=== PATIENT | female | born 1980 | race Caucasian/White ===

== ENCOUNTER 2020-03-03 11:29 | Outpatient (REF) | payer OTHER, SELFPAY | END 2020-03-03 11:30 | disposition home or self-care (01) | LOC: HO.LAB 11:29 | PROVIDERS: Visit Provider Internal Medicine | DX: Z20.828 Contact with and (suspected) exposure to other viral communicable diseases (principal) | CPT/HCPCS: U0003 ==

== ENCOUNTER 2020-11-14 08:35 | Emergency (ER) | payer OTHER, SELFPAY ==
--- NOTE | ~2020-11-14 | CT_ITS ---
EXAMINATION: CT HEAD WITHOUT CONTRAST CLINICAL INFORMATION: Shocking sensation left parietal region COMPARISON: None TECHNIQUE: Contiguous axial imaging was performed from the skull base to vertex without intravenous administration of contrast. This CT examination was performed using dose optimization techniques as appropriate, variously including the following: *Automated exposure control *Adjustment of mA and/or kV according to patient size (this includes techniques or standardized protocols for targeted exams where dose is matched to indication/reason for exam; i.e. extremities or head) *Use of iterative reconstruction technique DLP: 764 mGy-cm FINDINGS: There is no evidence of acute intracranial hemorrhage or territorial infarction. No abnormal mass effect or midline shift is seen. Quiles to white matter differentiation is well preserved. No extra-axial fluid collections are identified. The ventricles are normal in size. There is no abnormal attenuation within the brain parenchyma. The osseous structures and soft tissues are normal. The mastoid air cells and visualized portions of the paranasal sinuses are well aerated. CT/CT head/brain wo con IMPRESSION: No acute intracranial pathology.
[2020-11-14 09:02] VITALS: BP 160/72; PULSE 72; RESP 16; TEMP 36.4; O2SAT 98; BMI 38.7
--- NOTE | 2020-11-14 09:31 | PC.NURSE ---
pT REPORTS A SHOCK SENSATION TO LEFT OCCIPUT, REPOTRS IT BEGAN LAST NIGHT AND IS INTERMITTENT IN NATURE, HX OF MIGRAINES BUT NEVER EXPERIENCED SX LIKE THIS BEFORE. DENIES ASSOCIATED SX, NEUROS INTACT, DENIES MED CHANGES, TOOK 2 ALEVE AT 2330. PT AOX3, SKIN WD, RESP REG AND EVEN, ANSWERING QUESTIONS APPROPRIATELY. CARSON SHELTON IN TO BEDSIDE FOR EVAL
[2020-11-14 09:33] VITALS: BP 149/73; PULSE 72; RESP 16
[2020-11-14] MEDS: 0.9 % Sodium Chloride 1,000 ML 999 ML IVCONT (09:48)
[2020-11-14 09:52] LABS: MANUAL DIFF FLAG NO
[2020-11-14 09:55] LABS: Basophils Percent Auto 0.4 % (0-2); Eosinophils Absolute Auto 0.1 X10*3/uL (0.0-0.4); Eosinophils Percent Auto 1.4 % (0-4); Hematocrit 37.1 % (37-47); Hemoglobin 11.6 g/dl (12.0-16.0); Imm Gran Abs Auto 0.02 X10*3/uL (0.00-0.03); Imm Gran Pct Auto 0.3 % (0.0-0.4); Lymphocytes Absolute Auto 2.1 X10*3/uL (1.2-4.9); Lymphocytes Percent Auto 28.8 % (20-40); Mean Corpuscular HGB Conc 31.3 g/dl (31.0-35.0); Mean Corpuscular Hemoglobin 25.9 pg (27.0-33.0); Mean Corpuscular Volume 82.8 fL (80-98); Mean Platelet Volume 10.1 fL (9.4-12.3); Monocytes Absolute Auto 0.6 X10*3/uL (0.1-1.2); Monocytes Percent Auto 7.7 % (2-11); Neutrophils Absolute Auto 4.4 X10*3/uL (2.0-8.3); Neutrophils Percent Auto 61.4 % (45-73); Platelet Count 376 X10*3/uL (160-400); Red Blood Count 4.48 X10*6/uL (4.20-5.50); Red Cell Distribution Width 13.2 % (11.0-16.0); White Blood Count 7.1 X10*3/uL (4.8-10.8)
--- NOTE | 2020-11-14 10:10 | ED_ITS ---
HPI - Headache General Chief Complaint: Headache Stated Complaint: Headache Time Seen by Provider: 11/14/20 08:36 Source: patient Mode of arrival: ambulatory Limitations: no limitations History of Present Illness HPI Narrative: 40-year-old female with a past medical history of a spontaneous pneumothorax in her 20s and numbness to right side of her face years ago seen by Neurology although cleared after multiple MRI's per patient and no significant other medical history presenting to the ED with complaints of shocking sensation like an electric shock pain to the left lateral posterior aspect of her head that started since 11:00 yesterday. She reports she does not feel like this is a headache. She reports she that is constant although intermittently she has the sharp shocking sensation and when this happened she is unable to concentrate. Reports she usually does not get headaches. She denies any fevers, chills, dizziness, recent head trauma, tick bites or possible CO2 toxicity, changes in vision, photophobia, ear pain, ear ringing, neck pain/stiffness, chest pain, shortness of breath, abdominal pain, nausea/vomiting, diarrhea, constipation, dysuria, hematuria, rashes or any other symptoms complaints or concerns at this time. MD elicited complaint: other (Sharp Head Pain ) Onset (ago): day(s) (Since yesterday 11:00) Onset description: gradually Location: left and parietal Severity: moderate Quality & Timing: sharp and intermittent Exacerbating factors: none Relieving factors: nothing Associated symptoms: none Treatments prior to arrival: other (Aleve with no symptomatic relief) Related Data Previous Rx's Medication Instructions Recorded [id number]-[id number]-[id number] 1 cap PO Q8H PRN #10 cap 11/14/20 [Fioricet] cyclobenzaprine 10 mg PO Q8H #10 tab 11/14/20 gabapentin 100 mg PO BID 7 Days #14 cap 11/14/20 ibuprofen 800 mg PO Q8H PRN #14 tab 11/14/20 prednisone 40 mg PO DAILY 5 Days #10 tab 11/14/20 Allergies Allergy/AdvReac Type Severity Reaction Status Date / Time No Known Allergies Allergy Verified 11/14/20 09:02 Review of Systems Review of Systems: Constitutional : No changes in activity, No lethargy, No recent prior head injury, No agitation, No increased fussiness ENT/Mouth : No Ear Pain, No Nasal discharge/drainage Eyes: No Eye Pain, No Swelling, No Redness, No Foreign Body, No Vision Changes Cardiovascular : No Chest Pain, No SOB Respiratory : No Cough Gastrointestinal : No Nausea, No Vomiting, No abdominal Pain Genitourinary : No Dysuria, No Urinary Frequency, No Urinary Incontinence, No Urgency, No Flank Pain Musculoskeletal : No joint pain, No neck stiffness, No back pain/injury Skin : No lacerations Neuro : No unsteady gait, No Paresthesias, No Loss of Consciousness, No altered mental status, No dizziness, + Head pain Denies past medical history of HIV, recent trauma, coagulopathy, recent spinal/ epidural procedure, new medication, URI symptoms, close contacts with similar symptoms, tick bite, or known CO2 exposure. Yes all other systems are reviewed and are negative [facility] Past Medical History Attestation statement: The following information was validated with the patient. Medical History No known health problems Social History Social History Alcohol intake: never Patient Tobacco Use Status: Never used Tobacco Use of substances other than those prescribed or required for medical reasons: No Advance Directives: Yes Advance Directives Information Provided: Yes Advance Directives on File: No Patient : No Physical Exam Vital Signs: Vital Signs: Last Vital Signs Temp 98.1 F 11/14/20 11:54 Pulse 63 11/14/20 11:54 Resp 18 11/14/20 11:54 BP 136/65 11/14/20 11:54 Pulse Ox 97 11/14/20 11:54 Body Mass Index 38.7 Vital signs have been reviewed as normal and appeared to be correct. Blood pressure normal. Heart rate normal. Respiration rate normal. Temperature normal. Oxygen saturation normal. Appearance: Alert. Oriented X3. No acute distress. Head: Normal external exam. Normocephalic. Atraumatic. Able to rotate head bilaterally. No temporal artery tenderness noted. Eyes: PERRLA. EOMI. No nystagmus noted. Conjunctiva and sclera normal. Eyelids normal. Corneal reflex normal. ENT: EAC normal. TM's Normal. Hearing normal. Pharynx normal. Uvula midline. tongue midline. Moist mucous membranes. No trismus noted. No drooling noted. No muffled voice noted. Neck: Normal inspection. Neck supple. FROM. No adenopathy. Thyroid Normal. No meningeal signs. No neck mass noted. CVS: Normal heart rate and rhythm. Heart sound normal. No murmurs noted. Pulses normal throughout. Respiratory: No respiratory distress. Painless inspiration. Breath sounds normal. No wheezes/rales/rhonchi noted. Chest nontender. No accessory muscle usage noted or decreased air movement noted. Back: Full range of motion noted. Skin: Skin warm and dry. Normal skin color. Normal skin turgor. No rashes/lesions/lacerations noted. Extremities: Extremities exhibit normal range of motion. Extremities nontender. Able to shrug shoulders bilaterally and keep up against resistance. Neuro: Oriented X 3. No motor deficit. No sensory deficit. Reflexes normal. Moving all extremities. No focal motor deficits. Cranial nerves II-XI intact bilaterally. Facial strength normal. Normal cognition. Speech normal. Gait normal. Strength 5/5 throughout. No pronator drift. No tremor noted. No fasciculations noted. Muscle tone normal throughout. No asterixis noted. Qxbgel-gb-dofw test normal. Heel to beltran test normal. Tandem gait normal. Does not sway with eyes open. Romberg test negative. Rapid alternating movement upper extremity normal. Rapid alternating movement lower extremity normal. Hand drop from overhead-Mrs. face. No rigidity noted. NIHSS score 0. Course Course Course Narrative: - Patient afebrile, resting comfortably in no distress. Non- toxic appearing. Patient denies any recent trauma/injury to head. Neurological exam shows no deficits. BP WNL. Denies any changes in vision. Patient ambulates without difficulty. Given the history, and physical - most likely diagnosis: Migraine LUCIO vs trigeminal neuralgia. Although patient reports she usually does not get headaches therefore will obtain a CT scan of brain to evaluate for any acute processes. Otherwise will treat pain with 100 mg of gabapentin for possible trigeminal neuralgia. Then re-evaluate. SAH: unlikely given gradual onset. Intracranial bleed: unlikely given neg trauma, neg anticoagulation Meningitis: unlikely given pt afebrile, neg stiff neck, no immune compromise. Exam without signs of meningismus Temporal arteritis: Unlikely given Neg jaw claudication, no temporal tenderness or nodularity on exam. Cerebral venous thrombosis: unlikely given no h/o hypercoaguable state, no chronic head/neck infection. Reevaluation(s) Reevaluation #1: - labs obtained ESR 49. Mild elevation in AST/ALT/alkaline p hosphate at 40/52/176. CRP 2.50. Otherwise all other labs are within normal limits. CT scan of brain within normal limits no acute processes are noted. Will DC home with steroids and symptomatic treatment along with gabapentin for 7 days and instructions to follow-up with neurology. Also explained to the patient that her LFTs were mildly elevated although she does not have any abdominal pain her abdomen is soft and nontender she reports she is hungry but no abdominal pain there for explained to her that she should follow-up with her PCP for repeat LFT. Patient and at bedside understand and agree with this plan. Time: 12:[address] [facility] - Headache Medical Records Attestation: I reviewed the patient's medical records. Lab Data Attestation: I reviewed the patient's lab results. Result diagrams: 11/14/20 09:45 11/14/20 09:45 Labs: Lab Results 11/14/20 11/14/20 11/14/20 Range/Units 09:45 09:45 09:45 WBC 7.1 (4.8-10.8) X10*3/uL RBC 4.48 (4.20-5.50) X10*6/uL Hgb 11.6 L (12.0-16.0) g/dl Hct 37.1 (37-47) % MCV 82.8 (80-98) fL MCH 25.9 L (27.0-33.0) pg MCHC 31.3 (31.0-35.0) g/dl RDW 13.2 (11.0-16.0) % Plt Count 376 (160-400) X10*3/uL MPV 10.1 (9.4-12.3) fL Immature Gran % (Auto) 0.3 (0.0-0.4) % Neut % (Auto) 61.4 (45-73) % Lymph % (Auto) 28.8 (20-40) % Louisa % (Auto) 7.7 (2-11) % Eos % (Auto) 1.4 (0-4) % Baso % (Auto) 0.4 (0-2) % Lymph # (Auto) 2.1 (1.2-4.9) X10*3/uL Louisa # (Auto) 0.6 (0.1-1.2) X10*3/uL Eos # (Auto) 0.1 (0.0-0.4) X10*3/uL Baso # (Auto) 0.0 (0.0-0.2) X10*3/uL Abs Immat Gran (auto) 0.02 (0.00-0.03) X10*3/uL Absolute Neuts (auto) 4.4 (2.0-8.3) X10*3/uL Absolute Nucleated RBC 0.000 (0.0-0.012) X10*3/uL Nucleated RBC % (auto) 0.0 (0.0-0.2) /100WBC ESR 49 H (0-20) MM/HR Sodium 138 (135-145) mmol/L Potassium 3.6 (3.3-5.1) mmol/L Chloride 101 (96-108) mmol/L Carbon Dioxide 27 (22-29) mmol/L Anion Gap 14 (12-20) BUN 13 (9-16) mg/dL Creatinine 0.76 (0.5-1.4) mg/dL Estim Creat Clear Calc 104.3 Estimated GFR > 60 Random Glucose 110 (60-115) mg/dL Calcium 9.2 (8.4-10.2) mg/dL Magnesium 2.0 (1.6-2.6) mg/dL Total Bilirubin 0.5 (0.0-1.0) mg/dL AST 40 H (5-31) U/L ALT 52 H (0-31) U/L Alkaline Phosphatase 176 H (39-117) U/L C-Reactive Protein (< or = 0.50) mg/dL Total Protein 8.2 H (6.5-8.0) g/dL Albumin 4.2 (3.5-5.0) g/dL 11/14/20 Range/Units 09:45 WBC (4.8-10.8) X10*3/uL RBC (4.20-5.50) X10*6/uL Hgb (12.0-16.0) g/dl Hct (37-47) % MCV (80-98) fL MCH (27.0-33.0) pg MCHC (31.0-35.0) g/dl RDW (11.0-16.0) % Plt Count (160-400) X10*3/uL MPV (9.4-12.3) fL Immature Gran % (Auto) (0.0-0.4) % Neut % (Auto) (45-73) % Lymph % (Auto) (20-40) % Louisa % (Auto) (2-11) % Eos % (Auto) (0-4) % Baso % (Auto) (0-2) % Lymph # (Auto) (1.2-4.9) X10*3/uL Louisa # (Auto) (0.1-1.2) X10*3/uL Eos # (Auto) (0.0-0.4) X10*3/uL Baso # (Auto) (0.0-0.2) X10*3/uL Abs Immat Gran (auto) (0.00-0.03) X10*3/uL Absolute Neuts (auto) (2.0-8.3) X10*3/uL Absolute Nucleated RBC (0.0-0.012) X10*3/uL Nucleated RBC % (auto) (0.0-0.2) /100WBC ESR (0-20) MM/HR Sodium (135-145) mmol/L Potassium (3.3-5.1) mmol/L Chloride (96-108) mmol/L Carbon Dioxide (22-29) mmol/L Anion Gap (12-20) BUN (9-16) mg/dL Creatinine (0.5-1.4) mg/dL Estim Creat Clear Calc Estimated GFR Random Glucose (60-115) mg/dL Calcium (8.4-10.2) mg/dL Magnesium (1.6-2.6) mg/dL Total Bilirubin (0.0-1.0) mg/dL AST (5-31) U/L ALT (0-31) U/L Alkaline Phosphatase (39-117) U/L C-Reactive Protein 2.50 H (< or = 0.50) mg/dL Total Protein (6.5-8.0) g/dL Albumin (3.5-5.0) g/dL Discharge Plan Discharge Clinical Impression: Left-sided trigeminal neuralgia, Elevated LFTs Patient Disposition: Home, Self-Care Instructions: Trigeminal Neuralgia (ED) Prescriptions: New gabapentin 100 mg capsule 100 mg PO BID 7 Days Qty: 14 RF: 0 ycqihusxcw-bnvysfmvtsigd-cyrd [Fioricet] 50-300-40 mg capsule 1 cap PO Q8H PRN (Reason: pain) Qty: 10 RF: 0 ibuprofen 800 mg tablet 800 mg PO Q8H PRN (Reason: pain) Qty: 14 RF: 0 cyclobenzaprine 10 mg tablet 10 mg PO Q8H Qty: 10 RF: 0 prednisone 20 mg tablet 40 mg PO DAILY 5 Days Qty: 10 RF: 0 Referrals: Víctor Young MD [Physician] - 2 days (Trigeminal neuralgia) Archie Cohen MD [Primary Care Provider] - 2 days Print Language: German
[2020-11-14] MEDS: Gabapentin 100 MG CAPSULE PO (10:18)
--- NOTE | 2020-11-14 10:19 | PC.NURSE ---
pt medicated with gabapentin as charted, offering no new sx at this time. resting quietly awaiting CT, NS running WO.
[2020-11-14 10:36] LABS: Alanine Aminotransferase 52 U/L (0-31); Albumin Level 4.2 g/dL (3.5-5.0); Alkaline Phosphatase 176 U/L (39-117); Anion Gap 14 (12-20); Aspartate Amino Transferase 40 U/L (5-31); Bilirubin Total 0.5 mg/dL (0.0-1.0); Blood Urea Nitrogen 13 mg/dL (9-16); Calcium 9.2 mg/dL (8.4-10.2); Carbon Dioxide 27 mmol/L (22-29); Chloride 101 mmol/L (96-108); Creatinine Clr Calc Pharmacy 104.3; Estimated Glomerular Filt Rate > 60; Glucose Random 110 mg/dL (60-115); Potassium 3.6 mmol/L (3.3-5.1); Sodium 138 mmol/L (135-145); Total Protein 8.2 g/dL (6.5-8.0)
[2020-11-14 10:37] LABS: Erythrocyte Sedimentation Rate 49 MM/HR (0-20)
[2020-11-14 11:54] VITALS: BP 136/65; PULSE 63; RESP 18; TEMP 36.7; O2SAT 97
[2020-11-14] MEDS: Butalb/Acetamin/Caff 50/325/40 TABLET 1 TAB PO (12:05)
[2020-11-14] MEDS: Cyclobenzaprine HCl 10 MG TABLET PO (12:05)
[2020-11-14 12:20] LABS: Glucose Urine UA NEG (NEG); Leukocyte Esterase Urine NEG (NEG); Nitrite Urine NEG (NEG); Specific Gravity - Urine <= 1.005 (1.005-1.025); Urine Blood TRACE (NEG); Urine Ketones NEG (NEG); Urine Protein NEG (NEG-TRACE)
[2020-11-14 12:34] LABS: Appearance Urine CLEAR; Color Urine YELLOW
[2020-11-14 12:45] LABS: Bacteria Urine TRACE /LPF; RBC Urine 0-2 /HPF (0); Squamous Epithelial Cell Urine 1+ /LPF
== END 2020-11-14 12:22 | disposition home or self-care (01) ==
PROVIDERS: Physician Assistant Medical; Emergency Provider Emergency Medicine; PCP Pediatrics
DX: G50.0 Trigeminal neuralgia (principal); R79.89 Other specified abnormal findings of blood chemistry
CPT/HCPCS: 36415; 70450; 80053; 81001; 83735; 85025; 85652; 86140; 96360; 99285

== ENCOUNTER 2022-05-10 16:29 | Emergency (ER) | payer BC, SELFPAY ==
--- NOTE | ~2022-05-10 | CT_ITS ---
STUDY PERFORMED: CTA OF THE CHEST WITH CONTRAST CLINICAL INFORMATION: Reason for Exam acute onset of l upper chest pain ?etiology DESCRIPTION: Initial noncontrast CT of the chest was performed. Contrast timing was performed at the level of the ascending thoracic aorta. Subsequently, arterial phase multidetector volumetric imaging was performed through the chest following the administration of 75 mL Omnipaque 350 intravenous contrast No contrast reaction reported Sagittal and coronal reformatted images were obtained on the technologist workstation. Three-dimensional MIP reformatted imaging was performed and reviewed. This CT examination was performed using dose optimization techniques as appropriate, variously including the following: *Automated exposure control *Adjustment of mA and/or kV according to patient size (this includes techniques or standardized protocols for targeted exams where dose is matched to indication/reason for exam; i.e. extremities or head) *Use of iterative reconstruction technique Total exam dose-length product 424 mGy-cm COMPARISON: Chest CT 05/07/2009 FINDINGS: VASCULAR FINDINGS: 1. Prominent pulsation artifact of the ascending aorta. Normal caliber. No dissection. 2. The aortic arch is normal in course and caliber without dissection. Normal 3 vessel branching configuration. 3. Descending and visualized upper abdominal aorta normal caliber. Celiac, SMA, and bilateral renal artery origins patent. 4. Although not tailored for evaluation of the pulmonary arteries, there is no central pulmonary embolism. NONVASCULAR FINDINGS: Lungs: No airspace consolidation. No suspicious appearing pulmonary nodules. Airways: Central through segmental airways are clear. Pleura and pericardium: No pleural or pericardial effusions. Heart: No cardiomegaly. No appreciable coronary artery vascular calcifications. Lymph nodes:No mediastinal, hilar, or axillary lymphadenopathy. Chest Wall: No chest wall mass. Upper abdomen: Status post cholecystectomy. No biliary ductal dilation. Diffuse hepatic hypoattenuation consistent with pronounced steatosis. Imaged upper abdominal viscera otherwise unremarkable. Bones: No acute fracture or suspicious osseous lesion. CT/CT angio chest aorta IMPRESSION: 1. No evidence of aortic dissection or other acute aortic syndrome. 2. No airspace consolidation or effusions. 3. Hepatic steatosis.
--- NOTE | ~2022-05-10 | XR_ITS ---
EXAMINATION: XR CHEST CLINICAL INFORMATION: Left upper chest pain COMPARISON: 05/15/2012 TECHNIQUE: Frontal view of the chest was obtained. FINDINGS: No significant abnormality is noted involving the heart, lungs, mediastinum, bony thorax or soft tissues. XR/XR chest 1V IMPRESSION: Unremarkable examination.
[2022-05-10 16:33] VITALS: BP 173/92; PULSE 95; RESP 18; TEMP 36.4; O2SAT 97; BMI 39.3
--- NOTE | 2022-05-10 16:34 | ED.CHESTPAIN ---
HPI - Chest Pain General Chief Complaint: Chest Pain <CARSON Maynard - Last Filed: 05/10/22 16:40> Stated Complaint: L arm numbness <CARSON Maynard - Last Filed: 05/10/22 16:40> Time Seen by Provider: 05/10/22 17:48 <CARSON Maynard - Last Filed: 05/10/22 16:40> Source: patient <Yao Vargas MD - Last Filed: 05/10/22 20:11> Mode of arrival: ambulatory <Yao Vargas MD - Last Filed: 05/10/22 20:11> Limitations: no limitations <Yao Vargas MD - Last Filed: 05/10/22 20:11> History of Present Illness HPI narrative: Patient is 42 years old with knows his significant past medical history was sitting at work all of sudden noticed left upper chest pain radiating to the left was very painful feel left arms folded on the right side no prior history of neck pain or shoulder problems pain increases on deep breaths movements and palpation patient is significant distress when she came to the ER no shortness of breath <Yao Vargas MD - Last Filed: 05/10/22 20:11> Related Data Home Medications: Previous Rx's Medication Instructions Recorded xazkpebgaz-ztbhlvqyyohyo-usjfmwed 1 cap PO Q8H PRN pain #10 caps 11/14/20 50 mg-300 mg-40 mg capsule (Fioricet) cyclobenzaprine 10 mg tablet 10 mg PO Q8H Muscle spasm #10 tabs 11/14/20 gabapentin 100 mg capsule 100 mg PO BID Trigeminal neuralgia 11/14/20 7 days #14 caps ibuprofen 800 mg tablet 800 mg PO Q8H PRN pain #14 tabs 11/14/20 prednisone 20 mg tablet 40 mg PO DAILY rash 5 days #10 tabs 11/14/20 cyclobenzaprine 10 mg tablet 10 mg PO Q8H #20 tabs 05/10/22 ibuprofen 600 mg tablet 600 mg PO Q6H PRN fever or pain 05/10/22 #30 tabs <CARSON Maynard - Last Filed: 05/10/22 16:40> Allergies/Adverse Reactions: Allergies Allergy/AdvReac Type Severity Reaction Status Date / Time No Known Allergies Allergy Verified 11/14/20 09:02 <CARSON Maynard - Last Filed: 05/10/22 16:40> Review of Systems Review of Systems: Yes all other systems are reviewed and are negative <Yao Vargas MD - Last Filed: 05/10/22 20:11> FOR[facility]LY [facility] Past Medical History Medical History: Medical History No known health problems <CARSON Maynard - Last Filed: 05/10/22 16:40> Social History Social History: Social History Alcohol intake: never Patient Tobacco Use Status: Never used Tobacco Smoked in Last 30 Days: No Advance Directives: No Advance Directives Information Provided: Yes <CARSON Maynard - Last Filed: 05/10/22 16:40> Physical Exam Vital Signs: Vital Signs: Last Vital Signs Temp 98.2 F 05/10/22 19:36 Pulse 81 05/10/22 19:36 Resp 16 05/10/22 19:36 BP 133/74 05/10/22 19:36 Pulse Ox 97 05/10/22 19:36 O2 Del Method 05/10/22 19:36 BMI result Body Mass Index 39.3 <CARSON Maynard - Last Filed: 05/10/22 16:40> Vital Signs: Last Vital Signs Temp 98.2 F 05/10/22 19:36 Pulse 81 05/10/22 19:36 Resp 16 05/10/22 19:36 BP 133/74 05/10/22 19:36 Pulse Ox 97 05/10/22 19:36 O2 Del Method 05/10/22 19:36 BMI result Body Mass Index 39.3 <Yao Vargas MD - Last Filed: 05/10/22 20:11> Appearance: Alert. Oriented X3. No acute distress. Eyes: PERRLA, No Nystagmus ENT: Pharynx normal. Oral Mucosa moist Neck: Normal inspection. Neck supple. No midline tenderness CVS: Normal heart rate and rhythm. Pulses normal. Respiratory: No respiratory distress. Equal air entry bilateral, no wheezing/rales/rhonchi Abdomen: Soft and nontender. Bowel sounds are present, no mass palpable, no CVA tenderness Skin: Skin warm and dry. Normal skin color. Normal skin turgor. Extremities: No lower extremity edema. No calf tenderness tenderness to touch left upper chest good pulses in the left arm but is slightly colder than the right side , pain increases on abduction of the left arm Neuro: Oriented X 3. No motor deficit. No sensory deficit.No cerebellar signs , cranial nerves II-XII intact <Yao Vargas MD - Last Filed: 05/10/22 20:11> Course Course Course Narrative: RME - 42 yo female with history of depression presents to the ER for evaluation of left upper chest pain that started at noon today after a coughing fit at work. Pain radiates into left neck, left shoulder and she states her left upper extremity feels numb and cold. She reports pain in the chest with movement of the lower LUE. Also reports new onset of right lower extremity numbness as well, history of the same in the past. Labs, EKG, CXR ordered. Doubt acute stroke, given contralateral LE symptoms. Strength is equal in bilateral UE but she has decreased sensation of the left lower arm. Will defer other imaging to provider in Main ER. <CARSON Maynard - Last Filed: 05/10/22 16:40> Medications Administered Discontinued Medications Generic Name Dose Route Start Last Admin Trade Name Freq PRN Reason Stop Dose Admin Iohexol 100 ml 05/10/22 19:11 05/10/22 19:11 Iohexol 350 Mg/Ml 100 Ml Infus..Btl IV 05/10/22 19:12 100 ml ONCE ONE Administration Morphine Sulfate 4 mg 05/10/22 18:01 05/10/22 18:46 Morphine Sulfate 4 Mg/Ml Cartridge IVPUSH 05/10/22 18:02 4 mg ONCE ONE Administration Protocol Ondansetron HCl 4 mg 05/10/22 18:05/10/22 18:46 Ondansetron Hcl 4 Mg/2 Ml Vial IVPUSH 05/10/22 18:02 4 mg ONCE ONE Administration <CARSON Maynard - Last Filed: 05/10/22 16:40> Medications Administered Discontinued Medications Generic Name Dose Route Start Last Admin Trade Name Freq PRN Reason Stop Dose Admin Iohexol 100 ml 05/10/22 19:11 05/10/22 19:11 Iohexol 350 Mg/Ml 100 Ml Infus..Btl IV 05/10/22 19:12 100 ml ONCE ONE Administration Morphine Sulfate 4 mg 05/10/22 18:01 05/10/22 18:46 Morphine Sulfate 4 Mg/Ml Cartridge IVPUSH 05/10/22 18:02 4 mg ONCE ONE Administration Protocol Ondansetron HCl 4 mg 05/10/22 18:01 05/10/22 18:46 Ondansetron Hcl 4 Mg/2 Ml Vial IVPUSH 05/10/22 18:02 4 mg ONCE ONE Administration <Yao Vargas MD - Last Filed: 05/10/22 20:11> Medical Decision Making Medical Decision Making [facility] Narrative: Etiology of left-sided pain is not very clear clinically musculoskeletal patient has similar pain less severe few days ago CT angio negative for any dissection or aneurysm or clot. The pain increases on left arm movements Patient has good circulation both arms neurovascular intact no midline spinal tenderness clinically patient has rotator cuff tendinitis with left chest wall pain <Yao Vargas MD - Last Filed: 05/10/22 20:11> Differential Diagnosis Aortic dissection/SCV with thrombosis/pneumothorax/muscular pain/ACS <Yao Vargas MD - Last Filed: 05/10/22 20:11> Lab Data [facility] Lab Attestation statement: I reviewed the patient's lab results. <Yao Vargas MD - Last Filed: 05/10/22 20:11> Result Diagrams: 05/10/22 16:49 05/10/22 16:49 <CARSON Maynard - Last Filed: 05/10/22 16:40> Labs: Lab Results 05/10/22 05/10/22 05/10/22 Range/Units 16:49 16:49 16:49 WBC 8.8 (4.8-10.8) X10*3/uL RBC 4.45 (4.20-5.50) X10*6/uL Hgb 11.5 L (12.0-16.0) g/dl Hct 36.5 L (37.0-47.0) % MCV 82.0 (80.0-98.0) fL MCH 25.8 L (27.0-33.0) pg MCHC 31.5 (31.0-35.0) g/dl RDW 13.2 (11.0-16.0) % Plt Count 340 (160-400) X10*3/uL MPV 10.3 (9.4-12.3) fL Immature Gran % (Auto) 0.2 (0.0-0.4) % Neut % (Auto) 62.2 (45-73) % Lymph % (Auto) 29.7 (20-40) % Coffee % (Auto) 6.3 (2-11) % Eos % (Auto) 1.1 (0-4) % Baso % (Auto) 0.5 (0-2) % Lymph # (Auto) 2.6 (1.2-4.9) X10*3/uL Coffee # (Auto) 0.6 (0.1-1.2) X10*3/uL Eos # (Auto) 0.1 (0.0-0.4) X10*3/uL Baso # (Auto) 0.0 (0.0-0.2) X10*3/uL Abs Immat Gran (auto) 0.02 (0.00-0.03) X10*3/uL Absolute Neuts (auto) 5.5 (2.0-8.3) x10*3/uL Absolute Nucleated RBC 0.000 (0.0-0.012) X10*3/uL Nucleated RBC % (auto) 0.0 (0.0-0.2) /100WBC PT (10.0-13.1) SEC INR (0.9-1.1) APTT (26.0-36.4) SEC D-Dimer High Sensitivty NG/ML Sodium 137 (135-145) mmol/L Potassium 3.7 (3.3-5.1) mmol/L Chloride 102 (96-108) mmol/L Carbon Dioxide 27 (22-29) mmol/L Anion Gap 12 (12-20) BUN 12 (9-16) mg/dL Creatinine 0.70 (0.5-1.4) mg/dL Estim Creat Clear Calc 111.8 Estimated GFR > 60 Random Glucose 94 (60-115) mg/dL Calcium 9.5 (8.4-10.2) mg/dL Magnesium 2.1 (1.6-2.6) mg/dL Total Bilirubin 0.5 (0.0-1.0) mg/dL Direct Bilirubin 0.2 (0.0-0.5) mg/dL AST 44 H (5-31) U/L ALT 49 H (0-31) U/L Alkaline Phosphatase 177 H (39-117) U/L Troponin I High Sens < 3.5 (<3.5-17.0) ng/L Total Protein 8.1 H (6.5-8.0) g/dL Albumin 4.3 (3.5-5.0) g/dL Urine Color Urine Appearance Urine pH (5.0-9.0) Ur Specific [place] (1.005-1.025) Urine Protein (Neg-Trace) mg/dL Urine Glucose (UA) (Negative) mg/dL Urine Ketones (Negative) mg/dL Urine Blood (Negative) Urine Nitrite (Negative) Ur Leukocyte Esterase (Negative) Urine RBC (0-2) /HPF Urine WBC (0-5) /HPF Ur Squamous Epith Cells (0-2) /HPF Urine Bacteria (None Seen) Hyaline Casts (0-2) /LPF COVID-19 ([place]) (Negative) COVID-19 Clin Com 05/10/22 05/10/22 05/10/22 Range/Units 16:49 16:49 18:18 WBC (4.8-10.8) X10*3/uL RBC (4.20-5.50) X10*6/uL Hgb (12.0-16.0) g/dl Hct (37.0-47.0) % MCV (80.0-98.0) fL MCH (27.0-33.0) pg MCHC (31.0-35.0) g/dl RDW (11.0-16.0) % Plt Count (160-400) X10*3/uL MPV (9.4-12.3) fL Immature Gran % (Auto) (0.0-0.4) % Neut % (Auto) (45-73) % Lymph % (Auto) (20-40) % Coffee % (Auto) (2-11) % Eos % (Auto) (0-4) % Baso % (Auto) (0-2) % Lymph # (Auto) (1.2-4.9) X10*3/uL Coffee # (Auto) (0.1-1.2) X10*3/uL Eos # (Auto) (0.0-0.4) X10*3/uL Baso # (Auto) (0.0-0.2) X10*3/uL Abs Immat Gran (auto) (0.00-0.03) X10*3/uL Absolute Neuts (auto) (2.0-8.3) x10*3/uL Absolute Nucleated RBC (0.0-0.012) X10*3/uL Nucleated RBC % (auto) (0.0-0.2) /100WBC PT 11.5 (10.0-13.1) SEC INR 1.0 (0.9-1.1) APTT 33.2 (26.0-36.4) SEC D-Dimer High Sensitivty 349 NG/ML Sodium (135-145) mmol/L Potassium (3.3-5.1) mmol/L Chloride (96-108) mmol/L Carbon Dioxide (22-29) mmol/L Anion Gap (12-20) BUN (9-16) mg/dL Creatinine (0.5-1.4) mg/dL Estim Creat Clear Calc Estimated GFR Random Glucose (60-115) mg/dL Calcium (8.4-10.2) mg/dL Magnesium (1.6-2.6) mg/dL Total Bilirubin (0.0-1.0) mg/dL Direct Bilirubin (0.0-0.5) mg/dL AST (5-31) U/L ALT (0-31) U/L Alkaline Phosphatase (39-117) U/L Troponin I High Sens (<3.5-17.0) ng/L Total Protein (6.5-8.0) g/dL Albumin (3.5-5.0) g/dL Urine Color Yellow Urine Appearance Clear Urine pH 6.5 (5.0-9.0) Ur Specific [place] 1.025 (1.005-1.025) Urine Protein Negative (Neg-Trace) mg/dL Urine Glucose (UA) Negative (Negative) mg/dL Urine Ketones Trace (Negative) mg/dL Urine Blood Small (1+) H (Negative) Urine Nitrite Negative (Negative) Ur Leukocyte Esterase Trace H (Negative) Urine RBC 6-10 H (0-2) /HPF Urine WBC 6-10 H (0-5) /HPF Ur Squamous Epith Cells 6-10 (0-2) /HPF Urine Bacteria None Seen (None Seen) Hyaline Casts 0-2 (0-2) /LPF COVID-19 ([place]) Negative (Negative) COVID-19 Clin Com See Note <CARSON Maynard - Last Filed: 05/10/22 16:40> Lab Results 05/10/22 05/10/22 05/10/22 Range/Units 16:49 16:49 16:49 WBC 8.8 (4.8-10.8) X10*3/uL RBC 4.45 (4.20-5.50) X10*6/uL Hgb 11.5 L (12.0-16.0) g/dl Hct 36.5 L (37.0-47.0) % MCV 82.0 (80.0-98.0) fL MCH 25.8 L (27.0-33.0) pg MCHC 31.5 (31.0-35.0) g/dl RDW 13.2 (11.0-16.0) % Plt Count 340 (160-400) X10*3/uL MPV 10.3 (9.4-12.3) fL Immature Gran % (Auto) 0.2 (0.0-0.4) % Neut % (Auto) 62.2 (45-73) % Lymph % (Auto) 29.7 (20-40) % Coffee % (Auto) 6.3 (2-11) % Eos % (Auto) 1.1 (0-4) % Baso % (Auto) 0.5 (0-2) % Lymph # (Auto) 2.6 (1.2-4.9) X10*3/uL Coffee # (Auto) 0.6 (0.1-1.2) X10*3/uL Eos # (Auto) 0.1 (0.0-0.4) X10*3/uL Baso # (Auto) 0.0 (0.0-0.2) X10*3/uL Abs Immat Gran (auto) 0.02 (0.00-0.03) X10*3/uL Absolute Neuts (auto) 5.5 (2.0-8.3) x10*3/uL Absolute Nucleated RBC 0.000 (0.0-0.012) X10*3/uL Nucleated RBC % (auto) 0.0 (0.0-0.2) /100WBC PT (10.0-13.1) SEC INR (0.9-1.1) APTT (26.0-36.4) SEC D-Dimer High Sensitivty NG/ML Sodium 137 (135-145) mmol/L Potassium 3.7 (3.3-5.1) mmol/L Chloride 102 (96-108) mmol/L Carbon Dioxide 27 (22-29) mmol/L Anion Gap 12 (12-20) BUN 12 (9-16) mg/dL Creatinine 0.70 (0.5-1.4) mg/dL Estim Creat Clear Calc 111.8 Estimated GFR > 60 Random Glucose 94 (60-115) mg/dL Calcium 9.5 (8.4-10.2) mg/dL Magnesium 2.1 (1.6-2.6) mg/dL Total Bilirubin 0.5 (0.0-1.0) mg/dL Direct Bilirubin 0.2 (0.0-0.5) mg/dL AST 44 H (5-31) U/L ALT 49 H (0-31) U/L Alkaline Phosphatase 177 H (39-117) U/L Troponin I High Sens < 3.5 (<3.5-17.0) ng/L Total Protein 8.1 H (6.5-8.0) g/dL Albumin 4.3 (3.5-5.0) g/dL Urine Color Urine Appearance Urine pH (5.0-9.0) Ur Specific [place] (1.005-1.025) Urine Protein (Neg-Trace) mg/dL Urine Glucose (UA) (Negative) mg/dL Urine Ketones (Negative) mg/dL Urine Blood (Negative) Urine Nitrite (Negative) Ur Leukocyte Esterase (Negative) Urine RBC (0-2) /HPF Urine WBC (0-5) /HPF Ur Squamous Epith Cells (0-2) /HPF Urine Bacteria (None Seen) Hyaline Casts (0-2) /LPF COVID-19 ([place]) (Negative) COVID-19 Clin Com 05/10/22 05/10/22 05/10/22 Range/Units 16:49 16:49 18:18 WBC (4.8-10.8) X10*3/uL RBC (4.20-5.50) X10*6/uL Hgb (12.0-16.0) g/dl Hct (37.0-47.0) % MCV (80.0-98.0) fL MCH (27.0-33.0) pg MCHC (31.0-35.0) g/dl RDW (11.0-16.0) % Plt Count (160-400) X10*3/uL MPV (9.4-12.3) fL Immature Gran % (Auto) (0.0-0.4) % Neut % (Auto) (45-73) % Lymph % (Auto) (20-40) % Coffee % (Auto) (2-11) % Eos % (Auto) (0-4) % Baso % (Auto) (0-2) % Lymph # (Auto) (1.2-4.9) X10*3/uL Coffee # (Auto) (0.1-1.2) X10*3/uL Eos # (Auto) (0.0-0.4) X10*3/uL Baso # (Auto) (0.0-0.2) X10*3/uL Abs Immat Gran (auto) (0.00-0.03) X10*3/uL Absolute Neuts (auto) (2.0-8.3) x10*3/uL Absolute Nucleated RBC (0.0-0.012) X10*3/uL Nucleated RBC % (auto) (0.0-0.2) /100WBC PT 11.5 (10.0-13.1) SEC INR 1.0 (0.9-1.1) APTT 33.2 (26.0-36.4) SEC D-Dimer High Sensitivty 349 NG/ML Sodium (135-145) mmol/L Potassium (3.3-5.1) mmol/L Chloride (96-108) mmol/L Carbon Dioxide (22-29) mmol/L Anion Gap (12-20) BUN (9-16) mg/dL Creatinine (0.5-1.4) mg/dL Estim Creat Clear Calc Estimated GFR Random Glucose (60-115) mg/dL Calcium (8.4-10.2) mg/dL Magnesium (1.6-2.6) mg/dL Total Bilirubin (0.0-1.0) mg/dL Direct Bilirubin (0.0-0.5) mg/dL AST (5-31) U/L ALT (0-31) U/L Alkaline Phosphatase (39-117) U/L Troponin I High Sens (<3.5-17.0) ng/L Total Protein (6.5-8.0) g/dL Albumin (3.5-5.0) g/dL Urine Color Yellow Urine Appearance Clear Urine pH 6.5 (5.0-9.0) Ur Specific [place] 1.025 (1.005-1.025) Urine Protein Negative (Neg-Trace) mg/dL Urine Glucose (UA) Negative (Negative) mg/dL Urine Ketones Trace (Negative) mg/dL Urine Blood Small (1+) H (Negative) Urine Nitrite Negative (Negative) Ur Leukocyte Esterase Trace H (Negative) Urine RBC 6-10 H (0-2) /HPF Urine WBC 6-10 H (0-5) /HPF Ur Squamous Epith Cells 6-10 (0-2) /HPF Urine Bacteria None Seen (None Seen) Hyaline Casts 0-2 (0-2) /LPF COVID-19 ([place]) Negative (Negative) COVID-19 Clin Com See Note <Yao Vargas MD - Last Filed: 05/10/22 20:11> Independent Interpretation I performed an independent interpretation of an: EKG <Yao Vargas MD - Last Filed: 05/10/22 20:11> Interpretation: Normal sinus rhythm heart rate 84 beats per minute nonspecific ST-T changes no acute ischemia <Yao Vargas MD - Last Filed: 05/10/22 20:11> Discharge Plan Discharge Clinical Impression: Musculoskeletal chest pain, Tendinitis of left rotator cuff <CARSON Maynard - Last Filed: 05/10/22 16:40> Patient Disposition: Home, Self-Care <CARSON Maynard - Last Filed: 05/10/22 16:40> Instructions: Rotator Cuff Tendinitis (ED), Chest Wall Pain (ED) <CARSON Maynard - Last Filed: 05/10/22 16:40> Additional Instructions: Rest at home Take pain medication ibuprofen and muscle relaxant as prescribed <CARSON Maynard - Last Filed: 05/10/22 16:40> Prescriptions: New cyclobenzaprine 10 mg tablet 10 mg PO Q8H Qty: 20 0RF ibuprofen 600 mg tablet 600 mg PO Q6H PRN (Reason: fever or pain) Qty: 30 0RF No Action gabapentin 100 mg capsule 100 mg PO BID 7 Days Qty: 14 0RF [id number] [Fioricet] 50-300-40 mg capsule 1 cap PO Q8H PRN (Reason: pain) Qty: 10 0RF ibuprofen 800 mg tablet 800 mg PO Q8H PRN (Reason: pain) Qty: 14 0RF cyclobenzaprine 10 mg tablet 10 mg PO Q8H Qty: 10 0RF prednisone 20 mg tablet 40 mg PO DAILY 5 Days Qty: 10 0RF <CARSON Maynard - Last Filed: 05/10/22 16:40>
--- NOTE | 2022-05-10 16:35 | ECG_ITS ---
Test Reason : CHEST PAIN Blood Pressure : / mmHG Vent. Rate : 084 BPM Atrial Rate : 084 BPM P-R Int : 150 ms QRS Dur : 084 ms QT Int : 336 ms P-R-T Axes : 028 008 -26 degrees QTc Int : 397 ms Normal sinus rhythm Nonspecific T wave abnormality Abnormal ECG When compared with ECG of 14-MAY-2012 22:24, QT has shortened Referred By: Laura Rojas Electronically Signed By:Eric Perry
[2022-05-10 16:55] LABS: MANUAL DIFF FLAG NO
[2022-05-10 16:57] LABS: Basophils Percent Auto 0.5 % (0-2); Eosinophils Absolute Auto 0.1 X10*3/uL (0.0-0.4); Eosinophils Percent Auto 1.1 % (0-4); Hematocrit 36.5 % (37.0-47.0); Hemoglobin 11.5 g/dl (12.0-16.0); Imm Gran Abs Auto 0.02 X10*3/uL (0.00-0.03); Imm Gran Pct Auto 0.2 % (0.0-0.4); Lymphocytes Absolute Auto 2.6 X10*3/uL (1.2-4.9); Lymphocytes Percent Auto 29.7 % (20-40); Mean Corpuscular HGB Conc 31.5 g/dl (31.0-35.0); Mean Corpuscular Hemoglobin 25.8 pg (27.0-33.0); Mean Platelet Volume 10.3 fL (9.4-12.3); Monocytes Absolute Auto 0.6 X10*3/uL (0.1-1.2); Monocytes Percent Auto 6.3 % (2-11); Neutrophils Absolute Auto 5.5 x10*3/uL (2.0-8.3); Neutrophils Percent Auto 62.2 % (45-73); Platelet Count 340 X10*3/uL (160-400); Red Blood Count 4.45 X10*6/uL (4.20-5.50); Red Cell Distribution Width 13.2 % (11.0-16.0); White Blood Count 8.8 X10*3/uL (4.8-10.8)
[2022-05-10 17:08] LABS: Prothrombin Time 11.5 SEC (10.0-13.1)
[2022-05-10 17:10] LABS: Partial Thromboplastin Time 33.2 SEC (26.0-36.4)
[2022-05-10 17:22] LABS: COVID-19 Test Negative (Negative); IDNOW Serial# 16C4AD1C
[2022-05-10 17:27] LABS: Alanine Aminotransferase 49 U/L (0-31); Albumin Level 4.3 g/dL (3.5-5.0); Alkaline Phosphatase 177 U/L (39-117); Anion Gap 12 (12-20); Aspartate Amino Transferase 44 U/L (5-31); Bilirubin Direct 0.2 mg/dL (0.0-0.5); Bilirubin Total 0.5 mg/dL (0.0-1.0); Blood Urea Nitrogen 12 mg/dL (9-16); Calcium 9.5 mg/dL (8.4-10.2); Carbon Dioxide 27 mmol/L (22-29); Chloride 102 mmol/L (96-108); Creatinine Clr Calc Pharmacy 111.8; Estimated Glomerular Filt Rate > 60; Glucose Random 94 mg/dL (60-115); Magnesium 2.1 mg/dL (1.6-2.6); Potassium 3.7 mmol/L (3.3-5.1); Sodium 137 mmol/L (135-145); Total Protein 8.1 g/dL (6.5-8.0)
[2022-05-10 17:34] LABS: Troponin-I High Sensitivity < 3.5 ng/L (<3.5-17.0)
[2022-05-10 18:05] VITALS: BP 152/87; PULSE 78; RESP 17; TEMP 37.1; O2SAT 100
[2022-05-10 18:29] LABS: D Dimer High Sensitivity 349 NG/ML
[2022-05-10 18:42] LABS: Appearance Urine Clear; Color Urine Yellow; Glucose Urine UA Negative (Negative); Leukocyte Esterase Urine Trace (Negative); Nitrite Urine Negative (Negative); PH 6.5 (5.0-9.0); Specific Gravity - Urine 1.025 (1.005-1.025); UMIC TRIGGER UACC YES; Urine Blood Small (1+) (Negative); Urine Ketones Trace mg/dL (Negative); Urine Protein Negative (Neg-Trace)
--- NOTE | 2022-05-10 18:45 | PC.NURSE ---
patient a/ox4 . karlala . heart rate regular at 78 beats per minute . breathing even and unlabored . lungs clear throughout . skin pink warm and dry . patient reports 8 out 10 left chest / arm pain that started at 12 /1 pm today that has not stopped that radiates . 18 gauge IV placed in right wrist / forearm . patient medicated with zofran and morphine as ordered . labs sent . patient aware of plan of care .
[2022-05-10 18:46] VITALS: RESP 18
[2022-05-10] MEDS: ondansetron HCL 4 MG/2 ML VIAL IVPUSH (18:46)
[2022-05-10] MEDS: Morphine Sulfate 4 MG/ML CARTRIDGE IVPUSH (18:46)
[2022-05-10 18:47] LABS: Bacteria Urine None Seen (None Seen); Hyaline Casts Urine 0-2 /LPF (0-2); UACC Culture Trigger YES
[2022-05-10] MEDS: iohexoL 350 MG/ML 100 ML INFUS..BTL IV (19:11)
[2022-05-10 19:36] VITALS: BP 133/74; PULSE 81; RESP 16; TEMP 36.8; O2SAT 97
== END 2022-05-10 20:23 | disposition home or self-care (01) ==
PROVIDERS: Physician Assistant; Emergency Provider Internal Medicine; PCP Pediatrics
DX: R07.89 Other chest pain (principal); M75.102 Unspecified rotator cuff tear or rupture of left shoulder, not specified as traumatic; Z20.822 Contact with and (suspected) exposure to COVID-19
CPT/HCPCS: 36415; 71045; 71275; 80048; 80076; 81001; 83735; 84484; 85025; 85379; 85610; 85730; 87086; 87635; 93005; 96374; 96375; 99284; 99285; J2270; J2405; Q9967

== ENCOUNTER 2024-06-19 07:29 | Emergency (ER) | payer BC, SELFPAY ==
--- NOTE | ~2024-06-19 | CT_ITS ---
EXAMINATION: CT ABDOMEN AND PELVIS WITHOUT CONTRAST CLINICAL INFORMATION: Right upper quadrant abdominal pain. Epigastric pain. COMPARISON: CT report dated November 27, 2011. TECHNIQUE: Multidetector volumetric imaging was performed from the superior aspect of the liver through the pubic symphysis. Sagittal and coronal reformatted images were obtained on the technologist's workstation. This CT examination was performed using dose optimization techniques as appropriate, variously including the following: *Automated exposure control *Adjustment of mA and/or kV according to patient size (this includes techniques or standardized protocols for targeted exams where dose is matched to indication/reason for exam; i.e. extremities or head) *Use of iterative reconstruction technique. DLP: 754 mGy centimeter. FINDINGS: Inadequate evaluation of the intra-abdominal organs and vascular structures due to lack of IV contrast. LUNG BASES: No specific faint pulmonary groundglass in the periphery of the right lung base. LIVER, GALLBLADDER, AND BILIARY TREE: Liver measures 15 cm. Decreased attenuation. Status post cholecystectomy, likely laparoscopic. Common bile duct measures 4 mm. PANCREAS: No peripancreatic fluid collection. No main pancreatic ductal dilatation. SPLEEN: 9 cm. ADRENAL GLANDS: 9 mm low density nodule, right adrenal gland which measures 14 Hounsfield units. No nodular lesion, left adrenal gland. KIDNEYS AND URETERS: No hydronephrosis. No nephrolithiasis. BLADDER: Fluid-filled. GASTROINTESTINAL TRACT: No intestinal obstruction pattern. No pneumatosis intestinalis. No pneumoperitoneum. No ascites. I do not see the appendix. Mesenteric edema pattern. ABDOMINAL WALL: Small tiny fat-containing umbilical hernia. LYMPH NODES: Normal. VASCULAR: No aneurysm, abdominal aorta. PELVIC VISCERA: Inadequate evaluation. There is a 5 cm likely septated cystic lesion right adnexa. There is a 3.3 cm nonseptated cystic lesion in the left adnexa. Probable status post tubal ligation. Heterogeneous low density in the uterine cervix. OSSEOUS STRUCTURES: Castellvi type III sacralization. Syndesmophyte formation at the sacroiliac. Spondylosis L5-S1. CT/CT abdomen pelvis wo IV con IMPRESSION: Nonspecific mesenteric edema with prominent mesenteric lymph nodes. Small tiny fat-containing umbilical hernia. Peptic ulcer disease cannot be excluded. 5 cm septated cystic lesion, right adnexa. 3.3 cm cystic lesion, left adnexa. Fleischner guidelines were followed. Electronically signed by: Blayne Good MD 06/19/2024 03:35 PM EST RP
--- NOTE | ~2024-06-19 | US_ITS ---
CLINICAL HISTORY: RUQ pain + bojorquez sign Limited abdomen ultrasound. Comparison CT same day. Findings: The visualized pancreas is unremarkable. There is fatty infiltration of the liver. Cholecystectomy. Common bile duct 6 mm. Impression: Fatty infiltration of the liver. No acute abnormality is identified. This document has been electronically signed by: Kishan Hopson MD on 06/19/2024 17:47:25
--- NOTE | ~2024-06-19 | US_ITS ---
CLINICAL HISTORY: 5cm right ovarian cyst r o torsion Pelvic ultrasound. Transabdominal and transvaginal images were obtained. Comparison CT 06/19/2024. Findings: The uterus measures 8.3 x 5.9 x 5.2 cm. There are 2 uterine fibroids measuring up to 3.7 cm. Endometrial thickness 4 mm. In the right ovary there is a 5.6 cm cyst without a definite solid component and no internal blood flow identified. There is possible hydrosalpinx as well. In the left ovary there is a 3.4 cm follicle. Doppler evaluation demonstrates arterial and venous blood flow bilaterally. No significant free fluid is seen. Impression: There are 2 uterine fibroids. 5.6 cm cyst in the right ovary with possible hydrosalpinx. This is indeterminate consider follow-up. 3.4 cm follicle left ovary. This document has been electronically signed by: Kishan Hopson MD on 06/19/2024 17:46:13
[2024-06-19 07:35] VITALS: BP 126/66; PULSE 83; RESP 16; TEMP 36; O2SAT 100; BMI 36.0
[2024-06-19 08:07] LABS: MANUAL DIFF FLAG NO
[2024-06-19 08:09] LABS: Appearance Urine Clear; Color Urine Dark Yellow; Glucose Urine UA Negative (Negative); Leukocyte Esterase Urine Small (1+) (Negative); Nitrite Urine Negative (Negative); Specific Gravity - Urine >= 1.030 (1.005-1.025); UMIC TRIGGER UACC YES; Urine Blood Moderate (2+) (Negative); Urine Ketones Trace mg/dL (Negative); Urine Protein 30 (1+) mg/dL (Neg-Trace)
[2024-06-19 08:11] LABS: Basophils Percent Auto 0.3 % (0-2); Eosinophils Absolute Auto 0.2 X10*3/uL (0.0-0.4); Eosinophils Percent Auto 2.2 % (0-4); Hematocrit 33.2 % (37.0-47.0); Hemoglobin 10.6 g/dl (12.0-16.0); Imm Gran Abs Auto 0.03 X10*3/uL (0.00-0.03); Imm Gran Pct Auto 0.3 % (0.0-0.4); Lymphocytes Percent Auto 22.9 % (20-40); Mean Corpuscular HGB Conc 31.9 g/dl (31.0-35.0); Mean Corpuscular Hemoglobin 26.5 pg (27.0-33.0); Mean Platelet Volume 10.5 fL (9.4-12.3); Monocytes Absolute Auto 0.7 X10*3/uL (0.1-1.2); Monocytes Percent Auto 7.9 % (2-11); Neutrophils Absolute Auto 5.8 x10*3/uL (2.0-8.3); Neutrophils Percent Auto 66.4 % (45-73); Platelet Count 325 X10*3/uL (160-400); Red Cell Distribution Width 13.8 % (11.0-16.0); White Blood Count 8.7 X10*3/uL (4.8-10.8)
[2024-06-19 08:14] LABS: Bacteria Urine Trace (None Seen); Hyaline Casts Urine 0-2 /LPF (0-2); RBC Urine >20 /HPF (0-2); UACC Culture Trigger YES
[2024-06-19 08:27] LABS: Albumin Level 3.9 g/dL (3.5-5.0); Alkaline Phosphatase 150 U/L (39-117); Anion Gap 13 (12-20); Aspartate Amino Transferase 46 U/L (5-31); Bilirubin Total 1.1 mg/dL (0.0-1.0); Blood Urea Nitrogen 14 mg/dL (9-16); Calcium 8.9 mg/dL (8.4-10.2); Carbon Dioxide 23 mmol/L (22-29); Chloride 107 mmol/L (96-108); Creatinine Clr Calc Pharmacy 112.3; Estimated Glomerular Filt Rate > 60; Glucose Random 97 mg/dL (60-115); Lipase 30 U/L (8-78); Potassium 3.4 mmol/L (3.3-5.1); Sodium 140 mmol/L (135-145); Total Protein 8.2 g/dL (6.5-8.0)
[2024-06-19 08:39] LABS: Alanine Aminotransferase 44 U/L (0-31)
--- NOTE | 2024-06-19 14:13 | ED.ABDPAIN ---
HPI - Abdominal Pain General Chief Complaint: Abdominal Pain Stated Complaint: Abd pain Time Seen by Provider: 06/19/24 14:06 Source: patient, RN notes reviewed and old records reviewed Mode of arrival: ambulatory Limitations: no limitations History of Present Illness ED Provider: KESHIA MACKENZIE PA-C HPI narrative: 44 year old female presents to the ED today for evaluation of epigastric and RUQ abdominal pain x3 days. Reports pain began after eating chick ervin a 3 days ago. Pain has been constant in onset, waxing and waning in severity. Pain is exacerbated with any sort of PO intake. Reports drinking neena teri in the waiting room which aggravated the pain. Pain is somewhat relieved with Aleve. Denies any N/V/D. Endorses normal BM this morning. Admits to weekly Wegovy injections in abdomen since 12/2023. No known complications. denies etoh consumption. Pertinent surgical history include tubal ligation and cholecystectomy. Denies fever, chills, dysuria, hematuria, vaginal discharge. Related Data Previous Rx's ?Medication ?Instructions ?Recorded sgfwamrumx-vdhhvmaimsitg-vixrfyzd 1 cap PO Q8H PRN pain #10 caps 11/14/20 50 mg-300 mg-40 mg capsule (Fioricet) cyclobenzaprine 10 mg tablet 10 mg PO Q8H Muscle spasm #10 tabs 11/14/20 gabapentin 100 mg capsule 100 mg PO BID Trigeminal neuralgia 11/14/20 7 days #14 caps ibuprofen 800 mg tablet 800 mg PO Q8H PRN pain #14 tabs 11/14/20 prednisone 20 mg tablet 40 mg (2 x 20 mg) PO DAILY rash 5 11/14/20 days #10 tabs cyclobenzaprine 10 mg tablet 10 mg PO Q8H #20 tabs 05/10/22 ibuprofen 600 mg tablet 600 mg PO Q6H PRN fever or pain 05/10/22 #30 tabs omeprazole 20 mg capsule,delayed 20 mg PO DAILY 4 weeks #28 caps 06/19/24 release sucralfate 1 gram tablet 1 g PO TID 4 weeks #84 tabs 06/19/24 Allergies Allergy/AdvReac Type Severity Reaction Status Date / Time No Known Allergies Allergy Verified 06/19/24 07:40 Review of Systems Review of Systems Constitutional: No fever, chills, fatigue, night sweats, weight changes ENT/Mouth: No ear pain, hearing loss, nasal congestion, sinus pain, rhinorrhea, sore throat Eyes: No eye pain, swelling, redness, vision changes, discharge Cardio: No chest pain, palpitations, JIMÉNEZ, orthopnea, peripheral edema Pulm: No SOB, cough, sputum, wheezing, dyspnea, hemoptysis GI: No nausea, vomiting, hematemesis, diarrhea, constipation, hematochezia, melena, +abd pain : No irregular bleeding, dysuria, frequency, urgency, hesitancy, hematuria, flank pain, urinary flow changes, urinary incontinence or retention MSK: No back pain, neck pain, joint pain, myalgias Skin: No lesions, rashes Neuro: No weakness, numbness, paresthesias, LOC, dizziness, headache Psych: No anxiety/panic, depression, SI/HI, AH/VH All other systems reviewed and are negative. [facility] Past Medical History Attestation statement: The following information was validated with the patient. Source: old records reviewed and nursing notes reviewed Medical History No known health problems Social History Social History Alcohol intake: never Patient Tobacco Use Status: Never used Tobacco Advance Directives: No Advance Directives Information Provided: Yes Physical Exam ED Vital Signs: Vital Signs - 24 hr 06/19/24 07:35 06/19/24 18:20 Temperature 96.8 F 97.2 F Pulse Rate 83 63 Respiratory Rate 16 16 Blood Pressure 126/66 112/64 Pulse Oximetry 100 100 Oxygen Delivery Method Room Air Room Air BMI result Body Mass Index 36.0 General: Well appearing, in no acute distress. Skin: Warm, dry, intact. No rashes or lesions. Head: Normocephalic, atraumatic. EENT: Hearing is intact b/l. Conjunctiva clear. PERRLA. EOM intact. Moist mucous membranes.? Cardiac: Chest wall symmetric. RRR Lungs: Normal respiratory effort without accessory muscle use. CTA bilaterally Abdomen: Soft, non-tender, non-distended. No rebound tenderness or guarding. Positive BS x4. no cvat. Sensitive exam performed with [facility] pediatric physician present in room to early childhood special educator. External genitalia is normal in appearance without lesions, swelling, masses or tenderness. Vaginal canal is pink and moist without lesions or discharge. Cervix is non-tender without lesions or erosions. Uterus is anteflexed, non-tender and normal in size. Ovaries are non-tender without palpable masses or enlargement. No cervical motion tenderness on bimanual exam. Ext: Upper and lower extremities atraumatic, without tenderness, deformity, swelling or erythema Neuro: AOx3. Normal speech. Ambulating with steady gait. Course Course Course Narrative: 1822 -- CBC without leukocytosis. normocytic anemia, h&h above transfusion threshold. chemistry without acute electrolyte abnormality requiring intervention. t bili 1.1, chronically elevated liver enzymes which appear to be around baseline. Lipase WNL. Urine shows moderate amount of blood, small leukocyte esterase, over 20 RBCs, 6-10 urine WBCs, 6-10 squamous epithelial cells and trace urine bacteria. given lack of urinary symptoms, will await urine culture for treatment. Right upper quadrant ultrasound showing fatty infiltration of liver. Status post cholecystectomy. No CBD dilation. > pelvic ultrasound showing to uterine fibroids, 5.6 cm cyst in the right ovary with possible hydrosalpinx and a 3.4 cm follicle to left ovary. no evidence of torsion. > discussed with OBGYN Dr. Abreu - states that if patient is able to tolerate pelvic exam and exam is benign, recommending outpatient OBGYN f/u at [facility] as there is no gutter installer onc services at our facility. 1941 -- Pelvic exam performed. quite unremarkable. no CMT. cervix nonfriable. no blood/ discharge in vaginal canal. swabs for ct/ng/vc/trich sent to lab. > will contact patient w/ results from vaginal swabs. at this time, plan to treat epigastric pain w/ sucralfate and omeprazole. discussed signs and symptoms od ovarian cyst rupture/torsion. Told to return with worsening pain, fevers, nausea or vomiting. advised to f/u with [facility] OBGYN. info provided. Patient has remained stable throughout ED visit today. Discussed worrisome signs and symptoms and when to return to the ED. All questions answered at this time. Patient is agreeable with disposition and stable for discharge. Medical Decision Making Medical Decision Making MDM Narrative: 44 year old female presents to the ED today for evaluation of epigastric and RUQ abdominal pain x3 days. vital signs stable. afebrile. she is nontoxic appearing and in NAD. on exam, abdomen is soft, non-tender, non-distended. No rebound tenderness or guarding. Positive BS x4. Sensitive exam performed with [facility] motorcycle service technician present in room to early childhood special educator. External genitalia is normal in appearance without lesions, swelling, masses or tenderness. Vaginal canal is pink and moist without lesions or discharge. Cervix is non-tender without lesions or erosions. Uterus is anteflexed, non-tender and normal in size. Ovaries are non-tender without palpable masses or enlargement. No cervical motion tenderness on bimanual exam. Differential diagnosis includes biliary colic, renal colic, nephrolithiasis, gastroenteritis. Abdominal exam without peritoneal signs. No evidence of acute abdomen at this time. Well appearing. Moderate suspicion for acute hepatobiliary disease (including acute cholecystitis). Less likely to represent acute pancreatitis, PUD (including perforation), acute infectious processes (pneumonia, hepatitis, pyelonephritis), atypical appendicitis, vascular catastrophe, bowel obstruction or viscus perforation. Presentation not consistent with other acute, emergent causes of abdominal pain at this time. Plan: labs, UA, pain control, imaging, serial reassessment Differential Diagnosis Differential Diagnoses: The differential diagnosis associated with the presentation includes as above. Admission/Observation Consideration of admission/observation: Escalation of care including admission/observation considered admission considered. Lab Data MDM Lab Attestation statement: I reviewed the patient's lab results. as above. 06/19/24 07:59 06/19/24 07:59 Labs: Lab Results 06/19/24 06/19/24 Range/Units 07:59 19:10 WBC 8.7 (4.8-10.8) X10*3/uL RBC 4.00 L (4.20-5.50) X10*6/uL Hgb 10.6 L (12.0-16.0) g/dl Hct 33.2 L (37.0-47.0) % MCV 83.0 (80.0-98.0) fL MCH 26.5 L (27.0-33.0) pg MCHC 31.9 (31.0-35.0) g/dl RDW 13.8 (11.0-16.0) % Plt Count 325 (160-400) X10*3/uL MPV 10.5 (9.4-12.3) fL Immature Gran % (Auto) 0.3 (0.0-0.4) % Neut % (Auto) 66.4 (45-73) % Lymph % (Auto) 22.9 (20-40) % [place] % (Auto) 7.9 (2-11) % Eos % (Auto) 2.2 (0-4) % Baso % (Auto) 0.3 (0-2) % Lymph # (Auto) 2.0 (1.2-4.9) X10*3/uL [place] # (Auto) 0.7 (0.1-1.2) X10*3/uL Eos # (Auto) 0.2 (0.0-0.4) X10*3/uL Baso # (Auto) 0.0 (0.0-0.2) X10*3/uL Abs Immat Gran (auto) 0.03 (0.00-0.03) X10*3/uL Absolute Neuts (auto) 5.8 (2.0-8.3) x10*3/uL Absolute Nucleated RBC 0.000 (0.0-0.012) X10*3/uL Nucleated RBC % (auto) 0.0 (0.0-0.2) /100WBC Sodium 140 (135-145) mmol/L Potassium 3.4 (3.3-5.1) mmol/L Chloride 107 (96-108) mmol/L Carbon Dioxide 23 (22-29) mmol/L Anion Gap 13 (12-20) BUN 14 (9-16) mg/dL Creatinine 0.65 (0.5-1.4) mg/dL Estim Creat Clear Calc 112.3 Estimated GFR > 60 Random Glucose 97 (60-115) mg/dL Calcium 8.9 D (8.4-10.2) mg/dL Total Bilirubin 1.1 H (0.0-1.0) mg/dL Direct Bilirubin 0.5 (0.0-0.5) mg/dL AST 46 H (5-31) U/L ALT 44 H (0-31) U/L Alkaline Phosphatase 150 H (39-117) U/L Total Protein 8.2 H (6.5-8.0) g/dL Albumin 3.9 (3.5-5.0) g/dL Triglycerides 72 (<150) mg/dL Lipase 30 (8-78) U/L Urine Color Dark Yellow Urine Appearance Clear Urine pH 6.0 (5.0-9.0) Ur Specific [place] >= 1.030 H (1.005-1.025) Urine Protein 30 (1+) H (Neg-Trace) mg/dL Urine Glucose (UA) Negative (Negative) mg/dL Urine Ketones Trace (Negative) mg/dL Urine Blood Moderate (2+) H (Negative) Urine Nitrite Negative (Negative) Ur Leukocyte Esterase Small (1+) H (Negative) Urine RBC >20 H (0-2) /HPF Urine WBC 6-10 H (0-5) /HPF Ur Squamous Epith Cells 6-10 (0-2) /HPF Urine Bacteria Trace (None Seen) Hyaline Casts 0-2 (0-2) /LPF Chlam trachomat DNA PCR NOT DETECTED (Not Detect.) N.gonorrhoeae DNA (PCR) NOT DETECTED (Not Detect.) T. vaginalis (PCR) NOT DETECTED (Not Detect) Bact vaginosis (PCR) NEGATIVE (Negative) C. krusei/glabrata (PCR) NOT DETECTED (Not Detect) Apple group (PCR) NOT DETECTED (Not Detect) Independent Interpretation I performed an independent interpretation of an: Ultrasound and CT Scan Interpretation: CT a/p showing cystic structure to right adnexa, no bowel obstruction. RUQ US w/ absent GB pelvic us showing fibroid, normal aa/vv flow to b/l ovaries Radiology Impression Discussion of test interpretation with radiology: I have reviewed the radiologist's reading. Radiologist Impression: Procedure(s): CT abdomen pelvis wo IV con Accession Number(s): [id number] cc: Keshia Mackenzie; PIETRO VARGAS MD~ Report Number: [id number]: Total DLP = 754.00 mGy-cm EXAMINATION: CT ABDOMEN AND PELVIS WITHOUT CONTRAST CLINICAL INFORMATION: Right upper quadrant abdominal pain. Epigastric pain. COMPARISON: CT report dated November 27, 2011. TECHNIQUE: Multidetector volumetric imaging was performed from the superior aspect of the liver through the pubic symphysis. Sagittal and coronal reformatted images were obtained on the technologist's workstation. This CT examination was performed using dose optimization techniques as appropriate, variously including the following: *Automated exposure control *Adjustment of mA and/or kV according to patient size (this includes techniques or standardized protocols for targeted exams where dose is matched to indication/reason for exam; i.e. extremities or head) *Use of iterative reconstruction technique. DLP: 754 mGy centimeter. FINDINGS: Inadequate evaluation of the intra-abdominal organs and vascular structures due to lack of IV contrast. LUNG BASES: No specific faint pulmonary groundglass in the periphery of the right lung base. LIVER, GALLBLADDER, AND BILIARY TREE: Liver measures 15 cm. Decreased attenuation. Status post cholecystectomy, likely laparoscopic. Common bile duct measures 4 mm. PANCREAS: No peripancreatic fluid collection. No main pancreatic ductal dilatation. SPLEEN: 9 cm. ADRENAL GLANDS: 9 mm low density nodule, right adrenal gland which measures 14 Hounsfield units. No nodular lesion, left adrenal gland. KIDNEYS AND URETERS: No hydronephrosis. No nephrolithiasis. BLADDER: Fluid-filled. GASTROINTESTINAL TRACT: No intestinal obstruction pattern. No pneumatosis intestinalis. No pneumoperitoneum. No ascites. I do not see the appendix. Mesenteric edema pattern. ABDOMINAL WALL: Small tiny fat-containing umbilical hernia. LYMPH NODES: Normal. VASCULAR: No aneurysm, abdominal aorta. PELVIC VISCERA: Inadequate evaluation. There is a 5 cm likely septated cystic lesion right adnexa. There is a 3.3 cm nonseptated cystic lesion in the left adnexa. Probable status post tubal ligation. Heterogeneous low density in the uterine cervix. OSSEOUS STRUCTURES: Castellvi type III sacralization. Syndesmophyte formation at the sacroiliac. Spondylosis L5-S1. CT/CT abdomen pelvis wo IV con IMPRESSION: Nonspecific mesenteric edema with prominent mesenteric lymph nodes. Small tiny fat-containing umbilical hernia. Peptic ulcer disease cannot be excluded. 5 cm septated cystic lesion, right adnexa. 3.3 cm cystic lesion, left adnexa. Fleischner guidelines were followed. Electronically signed by: Blayne Good MD 06/19/2024 03:35 PM [facility] Independent Historian Clinical information obtained from an independent historian. History obtained from or confirmed by: Spouse External Record Review External record reviewed: Inpatient record Prescription Management I considered prescription management with: Pain Medication Social Determinants Patient?s care significantly limited by Social Determinants of Health including: Other Social Determinant of Health Medications Administered Discontinued Medications Generic Name Dose Route Start Last Admin Trade Name Terry PRN Reason Stop Dose Admin Al Hydroxide/Mg Hydroxide 30 ml 06/19/24 14:21 06/19/24 14:38 Magnesium Hydrox/Alum Hydrox 30 Ml Oral.Susp PO 06/19/24 14:22 30 ml ONCE ONE Administration Belladonna Alkaloids/Phenobarbital 10 ml 06/19/24 14:21 06/19/24 14:37 Phenobarb/Hyoscy/Atropine/Scop 10 Ml Elixir PO 06/19/24 14:22 10 ml ONCE ONE Administration Ondansetron HCl 4 mg 06/19/24 14:21 06/19/24 14:38 Ondansetron Odt 4 Mg Tab.Rapdis TRANSLINGU 06/19/24 14:22 4 mg ONCE ONE Administration Critical Care Time Critical Care Time Critical Care Time: No Discharge Plan Discharge Clinical Impression: Cyst of right ovary, Gastritis Patient Disposition: Home, Self-Care Instructions: Peptic Ulcer (ED), Gastritis (ED) Additional Instructions: Your blood work today is reassuring. The ultrasound of your right upper abdomen shows fatty liver. No acute findings. As discussed, the CT scan of abdomen shows incidental finding a 5 cm septated cystic lesion to your right ovary. Pelvic ultrasound was obtained to further investigate this. Pelvic ultrasound shows 5.6 cm cyst within your right ovary. We performed a pelvic exam today which was benign. Vaginal swabs were obtained to test for gonorrhea, chlamydia, bacterial vaginosis and Trichomonas. These tests will take a few days to result. You will be called with any positive results that require treatment. It is important that you follow up with an OBGYN doctor. I have provided you with a referral. Call them to establish care, they will not call you. [facility] [place]: [phone] As discussed, please return with new or worsening symptoms including worsening pain, fever above 100.4F, or nausea/vomiting. Regarding your upper abdominal pain, I have concern for peptic ulcer disease. I do not have concern that you are actively bleeding. I am sending a PPI (omeprazole) to your pharmacy. Take this daily for 4 weeks. I am also sending sucralfate to your pharmacy for your discomfort. Please follow up with GI specialist. I have provided you with a referral. Call them to establish care. They will not call you. Return with any new or worsening symptoms. In the case of an emergency call 911. Prescriptions: New omeprazole 20 mg capsule,delayed release(DR/EC) 20 mg PO DAILY 28 Days Qty: 28 0RF sucralfate 1 gram tablet 1 g PO TID 28 Days Qty: 84 0RF No Action gabapentin 100 mg capsule 100 mg PO BID 7 Days Qty: 14 0RF fhpksduhmb-jaqicgslflboj-bfpk [Fioricet] 50-300-40 mg capsule 1 cap PO Q8H PRN (Reason: pain) Qty: 10 0RF ibuprofen 800 mg tablet 800 mg PO Q8H PRN (Reason: pain) Qty: 14 0RF cyclobenzaprine 10 mg tablet 10 mg PO Q8H Qty: 10 0RF prednisone 20 mg tablet 40 mg PO DAILY 5 Days Qty: 10 0RF cyclobenzaprine 10 mg tablet 10 mg PO Q8H Qty: 20 0RF ibuprofen 600 mg tablet 600 mg PO Q6H PRN (Reason: fever or pain) Qty: 30 0RF Referrals: [facility] [place] [facility] [Provider Group] - 3 days (PUD) Pietro Vargas MD [Primary Care Provider] - Stand Alone Forms: Work/School Release Interventions: ED Discharge Assessment Last Done: 06/19/24 19:47 Discharge Date/Time: 06/19/24 19:47 Print Language: Liberian
[2024-06-19 14:32] LABS: Triglycerides 72 mg/dL (<150)
[2024-06-19] MEDS: PHENobarb/Hyoscy/Atropine/Scop 10 ML ELIXIR PO (14:37)
[2024-06-19] MEDS: Magnesium Hydrox/Alum Hydrox 30 ML ORAL.SUSP PO (14:38)
[2024-06-19] MEDS: Ondansetron ODT 4 MG TAB.RAPDIS TRANSLINGU (14:38)
[2024-06-19 14:47] LABS: Bilirubin Direct 0.5 mg/dL (0.0-0.5)
[2024-06-19 18:20] VITALS: BP 112/64; PULSE 63; RESP 16; TEMP 36.2; O2SAT 100
[2024-06-19 19:47] VITALS: BP 112/64; PULSE 63; RESP 16; TEMP 36.2; O2SAT 100
[2024-06-20 03:08] LABS: CT PCR NOT DETECTED (Not Detect.); NG PCR NOT DETECTED (Not Detect.)
[2024-06-20 13:55] LABS: Bacterial Vaginosis PCR NEGATIVE (Negative); Candida Group PCR NOT DETECTED (Not Detect); Candida glab krusei PCR NOT DETECTED (Not Detect); Trichomonas vaginalis PCR NOT DETECTED (Not Detect)
== END 2024-06-19 19:47 | disposition home or self-care (01) ==
PROVIDERS: Physician Assistant Medical; Emergency Provider Emergency Medicine; PCP Pediatrics
DX: N83.201 Unspecified ovarian cyst, right side (principal); K29.70 Gastritis, unspecified, without bleeding; R10.13 Epigastric pain; R10.11 Right upper quadrant pain; K42.9 Umbilical hernia without obstruction or gangrene; K76.0 Fatty (change of) liver, not elsewhere classified; E27.8 Other specified disorders of adrenal gland; Z90.49 Acquired absence of other specified parts of digestive tract; Z98.51 Tubal ligation status; Z79.899 Other long term (current) drug therapy
CPT/HCPCS: 36415; 74176; 76705; 76830; 76856; 80053; 81001; 81515; 82248; 83690; 84478; 85025; 87086; 87491; 87591; 93975; 99283; 99284

== ENCOUNTER → 2024-06-19 14:13 | Outpatient (BNV) | payer BC, SELFPAY | PROVIDERS: Emergency Provider Emergency Medicine; PCP Pediatrics; Visit Provider Radiology Diagnostic Radiology | DX: R10.11 Right upper quadrant pain (principal); N83.201 Unspecified ovarian cyst, right side | CPT/HCPCS: 74176; 76705; 93975 ==